=== PATIENT | male | born 1995 | race Caucasian/White ===

== ENCOUNTER 2020-12-02 21:08 | Emergency (ER) | payer BC ==
[~2020-12-02] VITALS: Ht 193 cm; Wt 105.2 kg
[~2020-12-02 21:08] MED LIST: CEPH500 PO; HYDACE5 PO; SULTRIDS PO; Zofran Odt4 MG SL
== END 2020-12-02 22:30 | disposition home or self-care (01) ==
LOC: ER 21:08
DX: S51.012A Laceration without foreign body of left elbow, initial encounter (principal); Z23 Encounter for immunization; W01.118A Fall on same level from slipping, tripping and stumbling with subsequent striking against other sharp object, initial encounter; W27.2XXA Contact with scissors, initial encounter
CPT/HCPCS: 12001; 90471; 90714; 99282-25

== ENCOUNTER → 2022-07-27 | Outpatient (CLI) | payer BC | END | disposition home or self-care (01) | LOC: LAB SHORT 14:36 → PLD 14:36 | DX: L91.8 Other hypertrophic disorders of the skin (principal) | CPT/HCPCS: 88304 ==